=== PATIENT | male | born 1975 | race Caucasian/White ===

== ENCOUNTER 2016-06-19 09:51 | Emergency (ER) | payer OTHER ==
[~2016-06-19] VITALS: Ht 193 cm; Wt 165.9 kg
[2016-06-19 09:54] VITALS: BP 149/92; PULSE 79; RESP 18; O2SAT 97
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
[2016-06-19] MEDS ORDERED: OXYC5TAB72 PO (11:27)
== END 2016-06-19 11:40 | disposition home or self-care (01) ==
LOC: SED 09:51
DX: S39.012A Strain of muscle, fascia and tendon of lower back, initial encounter (principal); V43.52XA Car driver injured in collision with other type car in traffic accident, initial encounter; Y93.89 Activity, other specified; Y92.410 Unspecified street and highway as the place of occurrence of the external cause; Y99.8 Other external cause status; E11.9 Type 2 diabetes mellitus without complications; Z88.8 Allergy status to other drugs, medicaments and biological substances; Z88.5 Allergy status to narcotic agent

== ENCOUNTER 2016-09-07 07:04 | Day surgery (SDC) | payer OTHER ==
--- NOTE | 2016-09-05 14:24 | PCM.ANEPRE ---
Anesthesia Pre-Op Review Reason for Review: BMI >45 Anesthesia Recommendations: Proceed with Procedure Additional Comments 40 yo male with BMI 48 for wound debridement of left hallux and removal of accessory bone left great toe on 09/07/16. Preop eval by primary care physician with no unusual findings. Diabetic, A1C pending. glucose runs 185-228. METS <4, likely due to foot infection. Labs ok. Ok to proceed and Dr Teresa will likely elect local with sedation. Usual DOS evaluation. Chart Reviewed by: Edward Mac MD, MD September 05, 2016 14:24
[~2016-09-07] VITALS: Ht 193 cm; Wt 171.6 kg
[~2016-09-07 07:04] MED LIST: CeFAZolin Inj 3 GM in IV Premix IV ONE; OXYC5TAB72 PO
[2016-09-07] MEDS ORDERED: Propofol 10,000 mCg/mL 20 mL Inj ONE (07:05)
[2016-09-07] MEDS ORDERED: fentaNYL-PF 50 mCg/mL 2 mL Inj ONE (07:05)
--- NOTE | 2016-09-07 07:07 | PCM.HPANE ---
Patient Data Surgeon Admitting Provider: Attending Provider:Raymundo Teresa DPM Primary Care Physician:Physicians Kaila,Francisco Del Cid Other Provider:Margi Gao Anesthesia Reason for Visit Left Great Toe Ulcer, Type 2 Diabetes Mellitus Ht/WT & BMI Height (Feet): 6 Height (Inches): 4 Weight (Kilograms): 178.262 Body Mass Index 47.00 Allergies Coded Allergies: beeswax (Verified Allergy, Unknown, UNKNOWN, 09/05/16) latex (Verified Allergy, Unknown, UNKNOWN, 09/05/16) codeine (Verified Adverse Reaction, Severe, unable to void, 09/05/16) hydrocodone (Verified Adverse Reaction, Severe, unable to void, 09/05/16) milk (Verified Adverse Reaction, Severe, LACTOSE INTOLERANT, 09/05/16) Past Anesthesia History Anesthesia History: Denies:: Anesthesia Reactions, Malignant Hyperthermia Diabetes History Hx Diabetes?: Yes Type of Diabetes: Type II Glycemic Control: Diet Controlled MRSA MRSA: No Medications Hypertension Medication: No Active Scripts oxyCODONE 5 Mg Tablet5 Mg PO Q4H PRN For Pain #14 TABLET Ref 0 Prov:Marianela Tao MD 06/19/16 Reported Medications Lisinopril 10 Mg [id number] Mg PO DAILY #30 09/07/16 Sildenafil Citrate (Viagra)100 Mg [id number] Mg PO PRN #6 09/07/16 Gemfibrozil 600 Mg [id number] Mg PO BID #60 09/07/16 Allopurinol 300 Mg [id number] Mg PO DAILY #30 09/07/16 Mirtazapine 30 Mg [id number] Mg PO DAILY #30 09/07/16 Aspirin 81 Mg [id number] Mg PO DAILY #30 09/07/16 Albuterol Sulfate (Ventolin HFA Inhaler)200 Puff/18 Gm Inhaler2 Puffs INHALATION PRN #18 09/07/16 Amoxicillin/Clav K 875-125 mg 875 Mg Tab1 Tablet PO BID #28 09/07/16 Paroxetine 40 Mg [id number] Mg PO DAILY #60 09/07/16 Discontinued Reported Medications [Lisinopril] 10 MG No Conflict Check10 Mg PO DAILY #30 09/07/16 History History of ENT Problems?: No HEENT History: Denies:: Abnormal Airway Cataracts Difficult Intubation Dysphagia Glaucoma Hearing Problem Sinus Problem TMJ Denture Type: None Teeth Condition: Inflamed Gums Missing Teeth Hx of Heart Problems?: Yes Cardiovascular History: Positive for:: Hypertension Denies:: Congestive Heart Failure Heart Murmur Hx of Respiratory Problem?: Yes Respiratory History: Positive for:: Pneumonia (HX OF) Denies:: Tuberculosis Use of C-PAP Machine Hx Neurologic Problems?: No Hx of GI Problems?: No Hx of Problems?: Yes Genitourinary History: Positive for:: Urinary Tract Infection (HX OF NEPHRITIS ) Other Pertinent History: C/OF ED, HESITANCY, FREQUENCY HX OF KIDNEY POLYPS Male Hx: Denies:: Prostate Problems Scrotal Mass Testicular Surgery Skin History: Positive for:: Pressure Ulcers (LT GREAT TOE DIABETIC ULCERATION =CURRENT PROBLEM) Denies:: History Skin Disorders? Hx Musculoskeletal Problems?: Yes Musculoskeletal History: Positive for:: Musculoskeletal Trauma (S/P LT ROTATOR CUFF RPR,PARTIAL AMP RT 2ND FINGER) Denies:: Back Injury (C/OF CHRONIC NECK PAIN) Hx of Psycho/Social Problems?: Yes Psycho Social History: Positive for:: Anxiety Hx Depression Hx Surgeries?: Yes (LT ROTATOR CUFF RPR,PARTIAL AMP RT 2ND FINGER) Hx Any Other Health Problems?: Yes Other History: Denies:: Cancer Endocrine Disease Hospitalization Thyroid Disease Hx Diabetes: Yes Hx Alcohol Use: YesAlcoholic Drinks Per Day: BEER DAILYHx Substance Use: No Smoking Status: Unknown if Ever Smoker Have You Smoked inLast 12 mo: YesApprox How Many Cigarettes/day: 1/2 PPD HX OF STARTING & STOPPING Stop/Bang S-Snoring: Do You Snore Loudly: No T-Tired: feel tired, fatigued: No O-Obsered: Observed not breath: No P-Blood Pressure: treated: Yes B- Body Mass Index > 35 kg/m2: Yes A- Age over 50: No N- Neck Large Circumference: Yes G- Gender Male: Yes SARA Total Score: 4 Risk Assessment Category Category 1A: Patient has history of documented sleep apnea, and HAS NOT received any narcotic, sedative or anesthesia administration during this stay. Category 1B: Patient has history of documented sleep apnea, and HAS received any narcotic , sedative or anesthesia administration during this stay Category 2: Patient has SUSPECTED Obstructive Sleep Apnea, and HAS received any narcotic , sedative or anesthesia administration during this stay. Category 3: Patient has SUSPECTED Obstructive Sleep Apnea and HAS NOT received narcotic, sedative or anesthesia administration during this stay. Category 4: Outpatient in Procedural Areas with known sleep apnea or who screen positive for High Risk via the STOP/BANG questionnaire. Exam Exam General Appearance: Alert, Oriented X3, Cooperative HEENT/AIRWAY: MP 2, Neck Movement (thick, thick sosa, FROM), Mouth Opening ( WNL) Lungs: Clear to Auscultation Heart: Exam Unremarkable Plan Impression Patient chart reviewed, patient interviewed and anesthestic plan with risks, benefits, and alternatives discussed, and informed consent obtained. ASA Physical Status: ASA3 Severe Disease Anesthetic Plan: MAC Bene/Risks/Altern/Consents: Yes HP Complete Prior to Induction: Yes Marcel Villarreal MD September 07, 2016 07:07
[2016-09-07 07:17] VITALS: BP 140/58; PULSE 70; RESP 16; O2SAT 95
[2016-09-07] MEDS: Lactated Ringer's 1,000 ML IV SCH ×2 (07:29→09:15)
[2016-09-07] MEDS ORDERED: AGM875T PO (07:41)
[2016-09-07] MEDS ORDERED: GEMF600T3 PO (07:41)
[2016-09-07] MEDS ORDERED: ASPI-973 PO (07:41)
[2016-09-07] MEDS ORDERED: ALBU18HF INHALATION (07:41)
[2016-09-07] MEDS ORDERED: MIRT30TA6 PO (07:41)
[2016-09-07] MEDS ORDERED: ALLO300T2 PO (07:41)
[2016-09-07] MEDS ORDERED: PARO40TA3 PO (07:41)
[2016-09-07] MEDS ORDERED: ZES5 PO (07:41)
[2016-09-07] MEDS ORDERED: SILD100T PO (07:41)
[2016-09-07] MEDS ORDERED: LISI10TA PO (07:42)
[2016-09-07] MEDS ORDERED: CeFAZolin Inj 2 GM in IV Premix 1 EACH IV ONE (09:05)
[2016-09-07] MEDS ORDERED: Lactated Ringer's 500 ML IV PRN (09:32)
[2016-09-07] MEDS ORDERED: Lactated Ringer's 1,000 ML IV SCH (09:32)
[2016-09-07] MEDS ORDERED: Atropine 0.4 mg/mL Inj IVPUSH PRN (09:35)
[2016-09-07] MEDS ORDERED: Labetalol 5 mg/mL 4 mL Inj IV PRN (09:35)
[2016-09-07] MEDS ORDERED: HYDROmorphone 1 mg/mL Inj IVPUSH PRN (09:35)
[2016-09-07] MEDS ORDERED: Ondansetron 2 mg/mL 2 mL Inj IVPUSH PRN (09:35)
[2016-09-07] MEDS ORDERED: fentaNYL-PF 50 mCg/mL 2 mL Inj IVPUSH PRN (09:35)
[2016-09-07] MEDS ORDERED: Dexamethasone 4 mg/mL Inj IVPUSH PRN (09:35)
[2016-09-07] MEDS ORDERED: hydrALAZINE 20 mg/mL Inj IVPUSH PRN (09:35)
[2016-09-07] MEDS ORDERED: Phenylephrine 10,000 mCg/mL Inj IVPUSH PRN (09:35)
[2016-09-07] MEDS ORDERED: EPHEDrine Sulfate 50 mg/mL Inj IVPUSH PRN (09:35)
[2016-09-07] MEDS ORDERED: Bupivacaine-MPF 0.5% 30 mL Inj INFILTRATE ONE (09:43)
[2016-09-07] MEDS ORDERED: Gentamicin 40 mg/mL 2 mL Inj IRRIGATION ONE (09:44)
[2016-09-07 10:31] VITALS: BP 126/59; PULSE 65; RESP 18; O2SAT 95
--- NOTE | 2016-09-07 10:33 | PCM.PODPO ---
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 Post Operative Diagnosis Same as preoperative diagnoses Procedure Excision of accessory sesamoid bone left hallux IPJ Full thickness excisional debridement of the left plantar hallux ulceration Surgeon Surgeon: Raymundo Teresa DPM Assistants: None Indication for Procedure Chronic nonhealing ulceration of the left plantar medial hallux Findings Small accessory sesamoid bone within the flexor hallucis longus tendon located on the plantar aspect of the first interphalangeal joint Details of Procedure Patient was identified in the preoperative holding area preoperative comorbidities and allergies were identified and thoroughly discussed. The patient was transported into the operating room and placed on the operating room table in the normal supine position the patient was given a preoperative block of 6 mL half percent Marcaine plain to the left hallux. The patient was then prepped and draped in the normal aseptic technique Mac anesthesia was induced by the anesthesia service. Attention was first paid to the medial aspect of the left hallux. A linear incision directly overlying the medial aspect of left hallux was made with a fresh #15 blade proximally to have centimeters in length. Once the initial layer skin no subcutaneous neurovascular structures were identified and retracted out of the surgical field. The medial neurovascular bundle was identified and retracted plantarly. Blunt dissection was carried down through subcutaneous tissue to identify deep capsule overlying the interphalangeal joint. Blunt dissection was carried down to identify the flexor hallucis longus tendon slightly plantar to the interphalangeal joint. The accessory bone was identified with direct visit was a and use of intraoperative mini C-arm x-ray. Sharp dissection was performed surrounding the accessory bone with a iris scissor and a fresh #15 blade the accessory bone was excised utilizing a rongeur. The plantar aspect of the base of the distal phalanx was then debrided with a rongeur shoring removal of all bony prominences which may be affecting his plantar medial ulceration. This wound was ankle was a flush large amounts of normal saline deep closure was performed with 3. 0 Vicryl and skin closure was performed with number 3. 0 Prolene. A large curette was then utilized to remove all fibrotic and nonviable soft tissue from the left plantar medial hallux ulceration which measures 0.5 cm x 0.3 cm x 0.4 cm in depth post debridement. Wounds were then dressed utilizing Adaptic sterile 4 x 4 gauze Evangelina and Cobumer and. No combinations occur during this procedure. The patient was awoken from anesthesia and transported out of the operating room to the postanesthesia care unit. Grafts, Implants: None Complications There were no periprocedural complications identified. Condition Stable Anesthetic Administered: MAC Catheters: None Output, Estimated Blood Loss: 10 Blood Admin during surgery: No Surgical Cast or Splint: None Surgical Specimen Removed: No Specimen sent to Pathology: No Post Operative Plan Ice and elevate left foot Partial weightbearing to the left heel Keep dressing clean dry and intact Advance diet as tolerated Follow-up in 1 week at the wound care center Raymundo Teresa DPM September 07, 2016 10:33
--- NOTE | 2016-09-07 10:39 | PCM.ANEP1 ---
Post Anesthesia Phase 1 PACU Phase 1 Assessment Date of Service: September 07, 2016 Vital Signs Vital Signs Date Time Temp Pulse Resp B/P Pulse Ox O2 Delivery O2 Flow Rate FiO2 09/07/16 10:31 36.1 65 18 126/59 95 Room Air 09/07/16 07:17 36.3 70 16 140/58 95 Room Air Anesthetic Administered: MAC Level of Alertness: Awake, talking CASAREZ's with Equal Strength: Yes Pain: No Nausea or Vomiting: No Oxygen Delivery: Room Air Lungs: Normal Air Movement Complications: No Follow up Care: No Marcel Villarreal MD September 07, 2016 10:39
[2016-09-07 11:01] VITALS: BP 126/57; PULSE 58; RESP 18; O2SAT 95
== END 2016-09-07 23:59 | disposition home or self-care (01) ==
LOC: SAS 07:04
PROVIDERS: ATTEND Podiatrist Foot & Ankle Surgery
DX: E11.621 Type 2 diabetes mellitus with foot ulcer (principal); L97.429 Non-pressure chronic ulcer of left heel and midfoot with unspecified severity; E11.40 Type 2 diabetes mellitus with diabetic neuropathy, unspecified; I10 Essential (primary) hypertension; F41.9 Anxiety disorder, unspecified; F32.9 Major depressive disorder, single episode, unspecified; F98.8 Other specified behavioral and emotional disorders with onset usually occurring in childhood and adolescence; M10.9 Gout, unspecified; Z87.891 Personal history of nicotine dependence
CPT/HCPCS: 28315; 76000; J0690; J1580; J2250; J3010; J7120